=== PATIENT | male | born 1985 | race Caucasian/White ===

== ENCOUNTER 2018-05-14 16:13 | Emergency (ER) | payer OTHER ==
[~2018-05-14] VITALS: Ht 160 cm; Wt 90.7 kg
[2018-05-14 16:35] VITALS: BP_SYST 129
[2018-05-14] MEDS ORDERED: IBUPROFEN 800 MG TABLET PO ONE (17:00)
[2018-05-14] MEDS ORDERED: DIPH-TET-PERTUS Vaccine 0.5 ML VIAL (ADACEL) I.M. ONE (17:00)
[2018-05-14] MEDS ORDERED: MORPHINE 4 MG/ML INJ. SYRINGE IM ONE (17:30)
[2018-05-14] MEDS ORDERED: LORazepam 2 MG/ML VIAL (FOR ER USE) IM ONE (17:45)
[2018-05-14 18:10] VITALS: BP_SYST 120
== END 2018-05-14 18:10 | disposition home or self-care (01) ==
LOC: SED 16:13
DX: S92.512A Displaced fracture of proximal phalanx of left lesser toe(s), initial encounter for closed fracture (principal); X58.XXXA Exposure to other specified factors, initial encounter; Y93.89 Activity, other specified; Y92.89 Other specified places as the place of occurrence of the external cause; Y99.8 Other external cause status
CPT/HCPCS: 28515; 73660; 90471; 90715; 96372; 99284; J2060; J2270